=== PATIENT | male | born 1970 ===

== ENCOUNTER 2019-10-21 16:07 | Inpatient (IN) | payer OTHER ==
[2019-10-21] MEDS ORDERED: HEPARIN SODIUM,PORCINE 5,000 UNIT/ML 1 ML VIAL IV PRN ×2 (16:20→23:49)
[2019-10-21] MEDS ORDERED: HEPARIN SODIUM,PORCINE 10,000 UNIT/ML 1 ML VIAL IV ONE (16:20)
--- NOTE | 2019-10-21 16:25 | ED ---
General Adult HPI - General Chief complaint: Chest Pain Stated complaint: Chest Pain Time Seen by Provider: 10/21/19 16:17 Source: patient, EMS Mode of arrival: EMS Limitations: no limitations - History of Present Illness Initial comments: Dictation was produced using eVoter dictation software. please excuse any grammatical, word or spelling errors. This patient was cared for during a federal and state declared state of emergency secondary to Covid 19 Chief Complaint: 48-year-old male with past medical history of hypertension and myocardial infarction presents with chest pain. History of Present Illness: 48-year-old male presents today with 1 day of chest pain. Patient states that he has pressure-like sensation to his anterior chest. Associated with diaphoresis and radiation to the left upper extremity. Patient states he has history of heart attack. Last year he said he had a myocardial infarction. He denies having any stents after having had a cardiac catheterization. Patient denies any other medical problems. Has a numbness and paresthesias to the arms or legs. Patient was arrested today when he was evaluated by [facility] staff and was brought to the emergency department. Patient has any drug use. No cocaine use. He reports being on lifetime smoker. No strong family history of cardiac disease. EMS brought patient to the emergency department. They provided him with nitroglycerin and aspirin. Patient denies any improvement of symptoms with nitroglycerin. The ROS documented in this emergency department record has been reviewed and confirmed by me. Those systems with pertinent positive or negative responses have been documented in the HPI. All other systems are other negative and/or noncontributory. PHYSICAL EXAM: General Impression: Alert and oriented x3, acute distress secondary to pain, d iaphoretic HEENT: Normocephalic atraumatic, extra-ocular movements intact, pupils equal and reactive to light bilaterally, mucous membranes moist. Cardiovascular: Heart regular rate and rhythm Chest: Able to complete full sentences, no retractions, no tachypnea Abdomen: abdomen soft, non-tender, non-distended, no organomegaly Musculoskeletal: Pulses present and equal in all extremities, no peripheral edema Motor: no focal deficits noted Neurological: CN II-XII grossly intact, no focal motor or sensory deficits noted Skin: Intact with no visualized rashes ED course: 48-year-old male with past medical history of myocardial infarction presents with chest pain concerning for acute coronary syndrome. EKG concerning for ST segment elevation MS with ST elevations in the anterior precordial leads. There is also atrial flutter. Code STEMI was paged. Vital signs upon arrival shows heart rate of 102, rest of vital signs within acceptable limits. Discussed patient case and EKG with Dr. Coburn at 4:30 PM. Patient be disposition directly to the catheterization lab for cardiac cath possible coronary artery intervention. Patient be admitted to Dr. Diaz's service. EKG interpretation: Ventricular rate 96, atrial flutter with variable conduction, QRS 170, QTC 399. No old EKG for comparison. Does appear to be ST elevations in precordial leads concerning for anterior MS with concomitant atrial flutter. - Related Data Allergies Allergy/AdvReac Type Severity Reaction Status Date / Time No Known Allergies Allergy Verified 10/21/19 16:09 Review of Systems ROS Statement: Those systems with pertinent positive or pertinent negative responses have been documented in the HPI. ROS Other: All systems not noted in ROS Statement are negative. Past Medical History Past Medical History: Myocardial Infarction (MS) History of Any Multi-Drug Resistant Organisms: None Reported Past Surgical History: No Surgical Hx Reported Smoking Status: Never smoker Past Alcohol Use History: Occasional Past Drug Use History: None Reported General Exam Limitations: no limitations Course Vital Signs 10/21/19 16:09 Temperature 97.6 F Pulse Rate 102 H Respiratory 20 Rate Blood Pressure 111/88 O2 Sat by Pulse 98 Oximetry Medical Decision Making - Lab Data Result diagrams: 10/21/19 16:20 10/21/19 16:20 Lab Results 10/21/19 10/21/19 10/21/19 Range/Units 16:20 16:20 16:20 WBC 7.9 (3.8-10.6) k/uL RBC 5.58 (4.30-5.90) m/uL Hgb 17.7 H (13.0-17.5) gm/dL Hct 53.8 H (39.0-53.0) % MCV 96.4 (80.0-100.0) fL MCH 31.7 (25.0-35.0) pg MCHC 32.9 (31.0-37.0) g/dL RDW 12.6 (11.5-15.5) % Plt Count 223 (150-450) k/uL Neutrophils % 70 % Lymphocytes % 19 % Monocytes % 6 % Eosinophils % 2 % Basophils % 1 % Neutrophils # 5.5 (1.3-7.7) k/uL Lymphocytes # 1.5 (1.0-4.8) k/uL Monocytes # 0.5 (0-1.0) k/uL Eosinophils # 0.1 (0-0.7) k/uL Basophils # 0.0 (0-0.2) k/uL PT 10.5 (9.0-12.0) sec INR 1.0 (<1.2) APTT 22.1 (22.0-30.0) sec D-Dimer 0.28 (<0.60) mg/L FEU Sodium 137 (137-145) mmol/L Potassium 4.5 (3.5-5.1) mmol/L Chloride 105 (98-107) mmol/L Carbon Dioxide 25 (22-30) mmol/L Anion Gap 7 mmol/L BUN 16 (9-20) mg/dL Creatinine 0.87 (0.66-1.25) mg/dL Est GFR (CKD-EPI)AfAm >90 (>60 ml/min/1.73 sqM) Est GFR (CKD-EPI)NonAf >90 (>60 ml/min/1.73 sqM) Glucose 96 (74-99) mg/dL Plasma Lactic Acid Hamilton (0.7-2.0) mmol/L Calcium 10.1 (8.4-10.2) mg/dL Magnesium 2.0 (1.6-2.3) mg/dL Total Bilirubin 0.9 (0.2-1.3) mg/dL AST 57 (17-59) U/L ALT 84 H (4-49) U/L Alkaline Phosphatase 71 (38-126) U/L Creatine Kinase 163 (55-170) U/L Troponin I (0.000-0.034) ng/mL Total Protein 7.9 (6.3-8.2) g/dL Albumin 4.3 (3.5-5.0) g/dL Lipase 34 (23-300) U/L TSH (0.465-4.680) mIU/L 10/21/19 10/21/19 10/21/19 Range/Units 16:20 16:20 16:20 WBC (3.8-10.6) k/uL RBC (4.30-5.90) m/uL Hgb (13.0-17.5) gm/dL Hct (39.0-53.0) % MCV (80.0-100.0) fL MCH (25.0-35.0) pg MCHC (31.0-37.0) g/dL RDW (11.5-15.5) % Plt Count (150-450) k/uL Neutrophils % % Lymphocytes % % Monocytes % % Eosinophils % % Basophils % % Neutrophils # (1.3-7.7) k/uL Lymphocytes # (1.0-4.8) k/uL Monocytes # (0-1.0) k/uL Eosinophils # (0-0.7) k/uL Basophils # (0-0.2) k/uL PT (9.0-12.0) sec INR (<1.2) APTT (22.0-30.0) sec D-Dimer (<0.60) mg/L FEU Sodium (137-145) mmol/L Potassium (3.5-5.1) mmol/L Chloride (98-107) mmol/L Carbon Dioxide (22-30) mmol/L Anion Gap mmol/L BUN (9-20) mg/dL Creatinine (0.66-1.25) mg/dL Est GFR (CKD-EPI)AfAm (>60 ml/min/1.73 sqM) Est GFR (CKD-EPI)NonAf (>60 ml/min/1.73 sqM) Glucose (74-99) mg/dL Plasma Lactic Acid Hamilton 1.6 (0.7-2.0) mmol/L Calcium (8.4-10.2) mg/dL Magnesium (1.6-2.3) mg/dL Total Bilirubin (0.2-1.3) mg/dL AST (17-59) U/L ALT (4-49) U/L Alkaline Phosphatase (38-126) U/L Creatine Kinase (55-170) U/L Troponin I <0.012 (0.000-0.034) ng/mL Total Protein (6.3-8.2) g/dL Albumin (3.5-5.0) g/dL Lipase (23-300) U/L TSH 1.030 (0.465-4.680) mIU/L Disposition Clinical Impression: Chest pain Disposition: ADMITTED IP TO THIS HOSP Condition: Critical Decision Time: 18:19
[2019-10-21] MEDS ORDERED: HEPARIN SOD,PORK IN 0.45% NACL 25,000 UNIT in 0.45% NACL 1 250ML.BAG IV SCH ×2 (16:30→23:45)
--- NOTE | 2019-10-21 16:36 | XR ---
EXAMINATION TYPE: XR chest 1V portable DATE OF EXAM: 10/21/2019 COMPARISON: NONE HISTORY: Chest pain TECHNIQUE: Single frontal view of the chest is obtained. FINDINGS: There is no focal air space opacity, pleural effusion, or pneumothorax seen. The cardiac silhouette size is borderline increased, size may be accentuated by technique, rotation. The osseou s structures are intact. There are overlying cardiac leads. IMPRESSION: Rotated exam. Cardiac size may be borderline.
[2019-10-21 16:38] LABS: Basophils % (A) 1 %; Eosinophils # (A) 0.1 k/uL (0-0.7); Eosinophils % (A) 2 %; HCT 53.8 % (39.0-53.0); HGB 17.7 gm/dL (13.0-17.5); Lymphocytes # (A) 1.5 k/uL (1.0-4.8); Lymphocytes % (A) 19 %; MCH 31.7 pg (25.0-35.0); MCHC 32.9 g/dL (31.0-37.0); MCV 96.4 fL (80.0-100.0); Mean Platelet Volume 7.7; Monocytes # (A) 0.5 k/uL (0-1.0); Monocytes % (A) 6 %; Neutrophils # (A) 5.5 k/uL (1.3-7.7); Neutrophils % (A) 70 %; Platelet Count 223 k/uL (150-450); RBC 5.58 m/uL (4.30-5.90); RDW 12.6 % (11.5-15.5); WBC 7.9 k/uL (3.8-10.6)
[2019-10-21] MEDS ORDERED: NALOXONE 0.4 MG/ML 1 ML VIAL IV PRN (16:38)
[2019-10-21] MEDS ORDERED: SODIUM CHLORIDE 0.9% 1,000 ML IV SCH ×2 (16:45→17:30)
[2019-10-21 16:49] LABS: ALT 84 U/L (4-49); AST 57 U/L (17-59); African American GFR (CKD) >90 (>60 ml/min/1.73 sqM); Albumin 4.3 g/dL (3.5-5.0); Alkaline Phosphatase 71 U/L (38-126); Anion Gap 7 mmol/L; Blood Urea Nitrogen 16 mg/dL (9-20); Calcium 10.1 mg/dL (8.4-10.2); Carbon Dioxide 25 mmol/L (22-30); Chloride 105 mmol/L (98-107); Creatine Kinase 163 U/L (55-170); Glucose 96 mg/dL (74-99); Non-African American GFR(CKD) >90 (>60 ml/min/1.73 sqM); Potassium 4.5 mmol/L (3.5-5.1); Sodium 137 mmol/L (137-145); Total Bilirubin 0.9 mg/dL (0.2-1.3); Total Protein 7.9 g/dL (6.3-8.2)
[2019-10-21 16:51] LABS: D-Dimer 0.28 mg/L FEU (<0.60); Partial Thromboplastin Time 22.1 sec (22.0-30.0); Prothrombin Time 10.5 sec (9.0-12.0)
[2019-10-21] MEDS ORDERED: LIDOCAINE 1% INJ 10MG/ML (20 ML MDV) SQ ONE (17:11)
[2019-10-21] MEDS ORDERED: MIDAZOLAM 2 MG/2 ML VIAL IVP ONE (17:11)
[2019-10-21] MEDS ORDERED: IV FLUID CONTINUATION 900 ML IV ONE (17:11)
[2019-10-21] MEDS ORDERED: fentaNYL (PF) 50 MCG/ML 2 ML AMP ONE (17:14)
[2019-10-21] MEDS ORDERED: fentaNYL (PF) 50 MCG/ML 2 ML AMP IVP ONE (17:15)
[2019-10-21] MEDS: VERAPAMIL SYRINGE (5 MG/10 ML) INTRAARTER ONE ×2 (17:16→17:21)
[2019-10-21] MEDS ORDERED: IOPAMIDOL-370 125ML BTL INJ ONE (17:21)
[2019-10-21] MEDS ORDERED: RX INFO: IV CONTRAST WAS GIVEN 1 EACH MISC MISCELLANE PRN (17:25)
[2019-10-21] MEDS ORDERED: DILTIAZEM 125 MG in SODIUM CHLORIDE 0.9% 100 ML IV SCH (17:30)
--- NOTE | 2019-10-21 18:27 | P.CRDCN ---
History of Present Illness Consult date: 10/21/19 Chief complaint: Chest pain History of present illness: This is a very pleasant 48-year-old gentleman with no significant past medical history who presented to the emergency room complaining of chest discomfort. I was called from the emergency room to activate the catheter lab to perform a STEMI on the patient. Because of that the patient underwent an emergent heart catheterization from right radial approach and that revealed normal coronaries. Further evaluation of the EKG revealed what seems to be atrial flutter with 2:1 block and right bundle branch block. Further questioning of the patient revealed that the patient was seen recently by a learning administrator at [facility] he was told that he does have "atypical problem". No prior history of diabetes, hypertension, dyslipidemia. No history of smoking. No significant family history of coronary artery disease. The heart catheterization was performed without any complication. I did review his blood work. That revealed normal d-dimer. The patient is going to be admitted to the third floor where he would be started on Cardizem drip and also he will be started on heparin drip once we achieve hemostasis from the right radial artery. Also I'm going to obtain an echocardiogram. We'll continue following up with him. Past Medical History Past Medical History: Myocardial Infarction (ND) History of Any Multi-Drug Resistant Organisms: None Reported Past Surgical History: No Surgical Hx Reported Smoking Status: Never smoker Past Alcohol Use History: Occasional Past Drug Use History: None Reported Medications and Allergies Allergies Allergy/AdvReac Type Severity Reaction Status Date / Time No Known Allergies Allergy Verified 10/21/19 16:09 Physical Exam Vitals: Vital Signs Temp Pulse Resp BP Pulse Ox 10/21/19 16:09 97.6 F 102 H 20 111/88 98 Intake and Output 10/21/19 10/21/19 10/21/19 06:59 14:59 22:59 Intake Total 150 Balance 150 Intake: IV 150 Other: Weight 90.718 kg - Constitutional General appearance: no acute distress - Respiratory Respiratory: bilateral: diminished - Cardiovascular Rhythm: regular Results 10/21/19 16:20 10/21/19 16:20 Cardiac Enzymes 10/21/19 10/21/19 Range/Units 16:20 16:20 AST 57 (17-59) U/L Troponin I <0.012 (0.000-0.034) ng/mL Coagulation 10/21/19 Range/Units 16:20 PT 10.5 (9.0-12.0) sec APTT 22.1 (22.0-30.0) sec CBC 10/21/19 Range/Units 16:20 WBC 7.9 (3.8-10.6) k/uL RBC 5.58 (4.30-5.90) m/uL Hgb 17.7 H (13.0-17.5) gm/dL Hct 53.8 H (39.0-53.0) % Plt Count 223 (150-450) k/uL Comprehensive Metabolic Panel 10/21/19 Range/Units 16:20 Sodium 137 (137-145) mmol/L Potassium 4.5 (3.5-5.1) mmol/L Chloride 105 (98-107) mmol/L Carbon Dioxide 25 (22-30) mmol/L BUN 16 (9-20) mg/dL Creatinine 0.87 (0.66-1.25) mg/dL Glucose 96 (74-99) mg/dL Calcium 10.1 (8.4-10.2) mg/dL AST 57 (17-59) U/L ALT 84 H (4-49) U/L Alkaline Phosphatase 71 (38-126) U/L Total Protein 7.9 (6.3-8.2) g/dL Albumin 4.3 (3.5-5.0) g/dL Current Medications Generic Name Dose Route Start Last Admin Trade Name Freq PRN Reason Stop Dose Admin Sodium Chloride 1,000 mls @ 75 mls/hr 10/21/19 17:30 Saline 0.9% IV 10/21/19 22:31 .[id number] BILL Diltiazem HCl 125 mg/ Sodium 125 mls @ 5 mls/hr 10/21/19 17:30 Chloride IV .Q24H BILL 5 MG/HR Metoprolol Tartrate 25 mg 10/21/19 21:00 Lopressor PO BID BILL Miscellaneous Information 1 each 10/21/19 17:25 Rx Info: Iv Contrast Was Given MISCELLANE 10/23/19 17:26 DAILY PRN Per Protocol Naloxone HCl 0.2 mg 10/21/19 16:38 Narcan IV Q2M PRN Opioid Reversal Oxymetazoline HCl 2 spray 10/21/19 18:09 Afrin 0.05% Nasal [place] NASAL BID BILL Intake and Output 10/21/19 10/21/19 10/21/19 06:59 14:59 22:59 Intake Total 150 Balance 150 Intake: IV 150 Other: Weight 90.718 kg Patient Weight 10/22/19 06:59 Weight 90.718 kg 10/21/19 16:20 10/21/19 16:20 Assessment and Plan Assessment: Assessment Atrial flutter with 2:1 block Plan Start the patient on Cardizem drip Start the patient on metoprolol by mouth Start the patient on heparin drip once we have hemostasis An echocardiogram was Doppler TSH Follow-up with the patient Thank you for allowing us participate in his care will continue following up with the patient
[2019-10-21] MEDS: OXYMETAZOLINE 0.05% NASL SPRAY 1 SPRAY BOTTLE NASAL SCH (19:22)
[2019-10-21] MEDS ORDERED: HYDROmorphone 0.5 MG/0.5 ML SYRINGE IVP STA (19:48)
[2019-10-21] MEDS: METOPROLOL TARTRATE 25 MG TAB PO SCH (21:07)
--- NOTE | 2019-10-21 22:00 | CC ---
CARDIAC CATHETERIZATION REPORT DATE OF SERVICE: 10/21/2019 PERFORMING PHYSICIAN: Dave Irwin M.D. PROCEDURES PERFORMED: 1. Selective right and left coronary angiogram. 2. Left heart catheterization. INDICATION: This is a 48-year-old gentleman who presented to the emergency room with chest discomfort and EKG finding concerning for acute ST-elevation myocardial infarction. Because of that, a heart catheterization was advised. APPROACH: Right radial artery. COMPLICATIONS: None. LEVEL OF SEDATION: Moderate, with sedation length of 12 minutes. PROCEDURE DESCRIPTION: After obtaining informed consent, the patient was brought to the cardiac medical laboratory technologist. The right radial artery was cannulated using micropuncture technique. The micropuncture wire passed easily. Then I placed a 6-Eritrean sheath at the right radial artery. After that I did selective right and left coronary angiogram using JR4 and JL3.5 catheters. Left heart catheterization was performed using a 6-Eritrean pigtail catheter. The procedure was completed without any complication. SELECTIVE CORONARY ANGIOGRAM.: 1. The right coronary artery is a large-caliber vessel. It is a dominant vessel and appeared to be angiographically normal. It distally bifurcates into PDA and PLV branches. Both appeared to be angiographically normal. 2. The left main is angiographically normal. It bifurcates into LCX, ramus intermedius and left anterior descending artery. 3. The left circumflex is a large-caliber vessel. It is a nondominant vessel. The left circumflex is angiographically normal. In the mid portion gives rise to an OM1 which bifurcates into 2 separate branches. Both appeared to be angiographically normal. The circumflex continues after that as a medium-caliber vessel in the AV groove. 4. The ramus intermedius is a small-caliber vessel to medium-caliber vessel and appeared to be angiographically normal. 5. The LAD is a large-caliber vessel. It is angiographically normal. It gives rise to a diagonal branch which appeared to be angiographically normal. 6. HEMODYNAMICS: The LVEDP was 8-10 mmHg without significant gradient across the aortic valve. CONCLUSION: 1. Normal coronary angiogram. 2. Normal left ventricular end-diastolic pressure. MMODL / IJN: [id number] /
[2019-10-21] MEDS ORDERED: HEPARIN SODIUM,PORCINE 5,000 UNIT/ML 1 ML VIAL IV ONE (23:49)
[2019-10-22 01:23] LABS: Basophils % (A) 1 %; Eosinophils # (A) 0.4 k/uL (0-0.7); Eosinophils % (A) 5 %; HCT 50.7 % (39.0-53.0); Lymphocytes # (A) 1.9 k/uL (1.0-4.8); Lymphocytes % (A) 24 %; MCHC 33.6 g/dL (31.0-37.0); MCV 98.2 fL (80.0-100.0); Mean Platelet Volume 8.1; Monocytes # (A) 0.5 k/uL (0-1.0); Monocytes % (A) 6 %; Neutrophils # (A) 5.2 k/uL (1.3-7.7); Neutrophils % (A) 64 %; Platelet Count 189 k/uL (150-450); RBC 5.17 m/uL (4.30-5.90); RDW 12.8 % (11.5-15.5); WBC 8.2 k/uL (3.8-10.6)
[2019-10-22 01:31] LABS: Partial Thromboplastin Time 22.2 sec (22.0-30.0); Prothrombin Time 10.8 sec (9.0-12.0)
[2019-10-22 07:32] LABS: Basophils % (A) 1 %; Eosinophils # (A) 0.4 k/uL (0-0.7); Eosinophils % (A) 5 %; HCT 51.8 % (39.0-53.0); HGB 17.4 gm/dL (13.0-17.5); Lymphocytes # (A) 1.6 k/uL (1.0-4.8); Lymphocytes % (A) 21 %; MCH 32.9 pg (25.0-35.0); MCHC 33.6 g/dL (31.0-37.0); MCV 97.9 fL (80.0-100.0); Monocytes # (A) 0.5 k/uL (0-1.0); Monocytes % (A) 6 %; Neutrophils # (A) 5.1 k/uL (1.3-7.7); Neutrophils % (A) 65 %; Platelet Count 194 k/uL (150-450); RBC 5.29 m/uL (4.30-5.90); RDW 12.6 % (11.5-15.5); WBC 7.8 k/uL (3.8-10.6)
[2019-10-22] MEDS ORDERED: HEPARIN SODIUM,PORCINE 5,000 UNIT/ML 1 ML VIAL IV STA (08:35)
[2019-10-22] MEDS: METOPROLOL TARTRATE 25 MG TAB PO SCH (08:46)
[2019-10-22] MEDS ORDERED: METOPROLOL TARTRATE 25 MG TAB PO SCH (09:00)
[2019-10-22] MEDS: APIXABAN 5 MG TAB PO SCH ×2 (11:00→20:13)
[2019-10-22] MEDS: OXYMETAZOLINE 0.05% NASL SPRAY 1 SPRAY BOTTLE NASAL SCH ×2 (11:01→20:14)
[2019-10-22] MEDS ORDERED: PROPAFENONE 150 MG TAB PO STA (12:12)
--- NOTE | 2019-10-22 13:14 | ECHOF ---
Referral Reason:A. FIB MEASUREMENTS -------- HEIGHT: 182.9 cm WEIGHT: 94.8 kg BP: 122/76 RVIDd: 3.1 cm (< 3.3) IVSd: 1.6 cm (0.6 - 1.1) LVIDd: 3.6 cm (3.9 - 5.3) LVPWd: 1.7 cm (0.6 - 1.1) IVSs: 2.1 cm LVIDs: 2.5 cm LVPWs: 1.9 cm LAESV Index (A-L): 26.74 ml/m Ao Diam: 3.0 cm (2.0 - 3.7) AV Cusp: 2.2 cm (1.5 - 2.6) LA Diam: 4.3 cm (2.7 - 3.8) MV EXCURSION: 20.130 mm (> 18.000) MV EF SLOPE: 95 mm/s (70 - 150) EPSS: 0.3 cm RAP: 5.00 mmHg RVSP: 11.42 mmHg FINDINGS -------- Atrial fibrillation. This was a technically difficult study with suboptimal views. The left ventricular size is normal. There is severe concentric left ventricular hypertrophy. Ove rall left ventricular systolic function is low-normal with, an EF between 50 - 55 %. Left ventricul ar fillimg pressure cannot be estimated due to Atrial fibrillation. The right ventricle is normal in size. The left atrial size is normal. The right atrial size is normal. Lumason used Interatrial and interventricular septum intact. Aortic valve is trileaflet and is mildly thickened. The mitral valve is normal. The mitral valve leaflets are mildly thickened. There is trace mitral regurgitation. The tricuspid valve appears structurally normal. Trace tricuspid regurgitation present. Right wilbert tricular systolic pressure is normal at < 35 mmHg. There is no pulmonic regurgitation present. The aortic root size is normal. IVC Not well visulized. There is no pericardial effusion. CONCLUSIONS -------- 1. Atrial fibrillation. 2. This was a technically difficult study with suboptimal views. 3. The left ventricular size is normal. 4. There is severe concentric left ventricular hypertrophy. 5. Overall left ventricular systolic function is low-normal with, an EF between 50 - 55 %. 6. Left ventricular fillimg pressure cannot be estimated due to Atrial fibrillation. 7. The right ventricle is normal in size. 8. The left atrial size is normal. 9. The right atrial size is normal. 10. Lumason used 11. Interatrial and interventricular septum intact. 12. Aortic valve is trileaflet and is mildly thickened. 13. The mitral valve is normal. 14. The mitral valve leaflets are mildly thickened. 15. There is trace mitral regurgitation. 16. The tricuspid valve appears structurally normal. 17. Trace tricuspid regurgitation present. 18. Right ventricular systolic pressure is normal at < 35 mmHg. 19. There is no pulmonic regurgitation present. 20. The aortic root size is normal. 21. IVC Not well visulized. 22. There is no pericardial effusion. TRANSMISSION SUPERVISOR: Amna Murillo RDCS
--- NOTE | 2019-10-22 13:21 | P.PN ---
Subjective Progress Note Date: 10/22/19 This is a very pleasant 48-year-old gentleman with no significant past medical history who presented to the emergency room complaining of chest discomfort. I was called from the emergency room to activate the catheter lab to perform a STEMI on the patient. Because of that the patient underwent an emergent heart catheterization from right radial approach and that revealed normal coronaries. Further evaluation of the EKG revealed what seems to be atrial flutter with 2:1 block and right bundle branch block. Further questioning of the patient revealed that the patient was seen recently by a oil operator at [facility] he was told that he does have "atypical problem". No prior history of diabetes, hypertension, dyslipidemia. No history of smoking. No significant family history of coronary artery disease. The heart catheterization was performed without any complication. I did review his blood work. That revealed normal d-dimer. The patient is going to be admitted to the third floor where he would be started on Cardizem drip and also he will be started on heparin drip once we achieve hemostasis from the right radial artery. Also I'm going to obtain an echocardiogram. We'll continue following up with him. 10/22/2019 Patient underwent a cardiac catheterization yesterday which did not reveal any obstructive coronary artery disease. He continues to be in an atrial flutter this morning with a heart rate around 9200. He is on a Cardizem drip which we will discontinue. We will increase his dose of beta giselle. Patient also continues to be on IV heparin, we will change him over to Eliquis. His LV function is normal per echo reviewed by Dr. Coburn. We will given a one-time dose of Rythmol to see if he converts to normal sinus rhythm. We will continue to observe him for 24 hours. Objective - Vital Signs Vital signs: Vital Signs Temp 98.6 F 10/22/19 08:00 Pulse 98 10/22/19 08:00 Resp 16 10/22/19 08:00 BP 136/82 10/22/19 08:00 Pulse Ox 98 10/22/19 08:00 Intake & Output 10/21/19 10/22/19 10/22/19 18:59 06:59 18:59 Intake Total 150 69.313 Balance 150 69.313 Weight 90.718 kg 95 kg Intake: IV 150 Intake, IV Titration 69.313 Amount Heparin Sod,Pork in 0.45% 69.313 NaCl 25,000 unit In 0.45 % NaCl 1 250ml.bag @ 11. 02 UNITS/KG/HR 9.997 mls/ hr IV .Q24H [facility] Rx#: [id number] - Exam PHYSICAL EXAMINATION: GENERAL: 48-year-old gentleman in no acute distress at the time of my examination HEENT: Head is atraumatic, normocephalic. Pupils equal, round. Sclera anicteric. Conjunctiva are clear. Mucous membranes of the mouth are moist. Neck is supple. There is no elevated jugular venous pressure. No carotid b ruit is heard. HEART EXAMINATION: Heart S1, S2 irregularly irregular . CHEST EXAMINATION: Lungs are clear to auscultation and precussion. No chest wall tenderness is noted on palpation or with deep breathing. ABDOMEN: Soft, nontender. Bowel sounds are heard. No organomegaly noted. EXTREMITIES: 2+ peripheral pulses with no evidence of peripheral edema and no calf tenderness noted. Right radial site clean and dry, good distal pulse NEUROLOGIC patient is awake, alert and oriented 3. . - Labs CBC & Chem 7: 10/22/19 07:17 10/21/19 16:20 Labs: Abnormal Lab Results - Last 24 Hours (Table) 10/21/19 10/21/19 10/22/19 Range/Units 16:20 16:20 07:17 Hgb 17.7 H (13.0-17.5) gm/dL Hct 53.8 H (39.0-53.0) % APTT 41.5 H (22.0-30.0) sec ALT 84 H (4-49) U/L Assessment and Plan Plan: Assessment and plan #1 chest discomfort, EKG suggestive of possible STEMI on arrival, patient was taken to the cardiac catheterization lab, not found to have any obstructive coronary artery disease #2 typical atrial flutter with 2 to one block Plan Echocardiogram with Doppler study was reviewed by Dr. Coburn, patient has a normal LV function. We will given 600 mg of Rythmol now, discontinue the IV heparin and start Eliquis, discontinue IV Cardizem and increase the dose of beta giselle. Continue to monitor the patient for 24 hours. DNP note has been reviewed, I agree with a documented findings and plan of care. Patient was seen and examined.
[2019-10-22] MEDS: ACETAMINOPHEN TAB 325 MG TAB PO PRN (16:46)
[2019-10-22] MEDS ORDERED: ATROPINE SULFATE 0.1 MG/ML 10ML SYRINGE IV STA (19:37)
[2019-10-22] MEDS: METOPROLOL TARTRATE 50 MG TAB PO SCH (20:03)
--- NOTE | 2019-10-22 20:08 | P.HPIM ---
History of Present Illness H&P Date: 10/22/19 Chief Complaint: Chest tightness History of presenting complaint: This is a pleasant 48-year-old patient who follows with Dr. Rosa Wang. Patient also in good health normally. For 2 weeks patient has been feeling somewhat off. Described himself as feeling a little bit short of breath. Also describes having some chest tightness. Sometimes going down the left arm. Also social dizziness lightheadedness some perspiration. Presented to the ER. Patient does state that he had a prior [place] and was treated at [facility]. He had no coronary intervention. Does not take any medications. In the ER patient is felt to have a ST elevation microinfarction and patient was taken to the cardiac cath last emergency. Showed normal coronaries. EKG had shown atrial flutter with 2:1 block. Patient yesterday was arrested from his workplace and taken to the detention for which is presented. Patient has a officer with him in the room. Denies any leg swelling. No fever no chills Review of systems: GEN.: Tired EYES: None HEENT: None NECK: None RESPIRATORY: As above CARDIOVASCULAR: As above GASTROINTESTINAL: None GENITOURINARY: None MUSCULOSKELETAL: None LYMPHATICS: None HEMATOLOGICAL: None PSYCHIATRY: None NEUROLOGICAL: None Past medical history to include: Questionable myocardial infarction Social history: No smoking. Alcohol occasionally. Denies use of recreational drugs. Patient has a auto repair shop. His . Currently arraainged-in the presence of police custody Family history: Lung cancer Physical examination: VITAL SIGNS: 98.6, 98, 16, 136/82, 98% on room air GENERAL: BMI 30.1, laying in bed, comfortable. EYES: Pupils equal. Conjunctiva normal. HEENT: External appearance of nose and ears normal, oral cavity grossly normal. NECK: JVD not raised; masses not palpable. HEART: First and second heart sounds are normal; no edema. LUNGS: Respiratory rate normal; clear to auscultation. ABDOMEN: Soft, nontender, liver spleen not palpable, no masses palpable. PSYCH: Alert and oriented x3; mood and affect normal. NEUROLOGICAL: Cranial nerves grossly intact; no facial asymmetry, power and sensation grossly intact. LYMPHATICS: No lymph nodes palpable in the axilla and neck INVESTIGATIONS, reviewed in the clinical context: White count 7.9 hemoglobin 7.7 platelets 223 potassium 4.5 creatinine 0.87 Troponin I less than 0.012 TSH 1.030 EKG tracing personally reviewed by me-right bundle branch block pattern with 2:[address] elevation Chest x-ray film personally reviewed by me-portable some right diaphragm elevation 2-D echocardiogram-severe concentric LVH, EF of 50-55% Assessment: -New onset atrial flutter with 2:1 block, symptomatic, POA -Cardiac catheterization revealing normal coronaries -Obesity BMI 30.1 -D-dimer 0.28 make making be extremely unlikely. Patient has no swelling of the lower extremity. Other risk factors. -Essential hypertension -Hypertensive heart disease Plan: Patient was started on Lopressor by cardiology. Jackelin Akersmojoselyn. See how he does. Will follow with cardiology.[id number] score is 1. Anticoagulation as per cardio G. Care was discussed with the patient. Questions were answered. Past Medical History Past Medical History: Myocardial Infarction ([place]) Last Myocardial Infarction Date:: unknown History of Any Multi-Drug Resistant Organisms: None Reported Past Surgical History: No Surgical Hx Reported Past Anesthesia/Blood Transfusion Reactions: No Reported Reaction Smoking Status: Never smoker Past Alcohol Use History: Occasional Past Drug Use History: None Reported - Past Family History Father Family Medical History: Cancer Additional Family Medical History / Comment(s): Lung CA Mother History Unknown: Yes Medications and Allergies Home Medications Medication Instructions Recorded Confirmed Type Aspirin 325 mg PO ONCE 10/21/19 10/21/19 History Metoprolol (Unknown Dose) 1 tab PO DAILY 10/21/19 10/21/19 History Nitroglycerin Sl Tabs [Nitrostat] 0.4 mg SUBLINGUAL Q5M PRN 10/21/19 10/21/19 History Allergies Allergy/AdvReac Type Severity Reaction Status Date / Time No Known Allergies Allergy Verified 10/21/19 22:43 Physical Exam Vitals: Vital Signs Temp Pulse Pulse Resp BP BP Pulse Ox 10/22/19 08:00 98.6 F 98 16 136/82 98 10/22/19 03:10 98.1 F 65 16 122/76 100 10/21/19 23:35 98.1 F 76 16 102/76 98 10/21/19 19:15 18 10/21/19 19:11 97.8 F 101 H 18 164/89 98 10/21/19 19:00 108 H 20 138/94 98 10/21/19 18:30 108 H 18 163/63 10/21/19 18:15 100 20 119/97 10/21/19 18:00 98.1 F 104 H 20 135/91 98 10/21/19 16:09 97.6 F 102 H 20 111/88 98 Intake and Output 10/21/19 10/22/19 10/22/19 22:59 06:59 14:59 Intake Total 150 69.313 Balance 150 69.313 Intake: IV 150 Intake, IV Titration 69.313 Amount Heparin Sod,Pork in 0.45% 69.313 NaCl 25,000 unit In 0.45 % NaCl 1 250ml.bag @ 11. 02 UNITS/KG/HR 9.997 mls/ hr IV .Q24H [facility] Rx#: [id number] Other: Weight 90.718 kg 95 kg Results CBC & Chem 7: 10/22/19 07:17 10/21/19 16:20 Labs: Abnormal Lab Results - Last 24 Hours (Table) 10/21/19 10/21/19 10/22/19 Range/Units 16:20 16:20 07:17 Hgb 17.7 H (13.0-17.5) gm/dL Hct 53.8 H (39.0-53.0) % APTT 41.5 H (22.0-30.0) sec ALT 84 H (4-49) U/L Thrombosis Risk Factor Assmnt - Choose All That Apply Any of the Below Risk Factors Present?: Yes Each Factor Represents 1 point: Age 41-60 years Other Risk Factors: No Other congenital or acquired thrombophilia - If yes, enter type in comment: No Thrombosis Risk Factor Assessment Total Risk Factor Score: 1 Thrombosis Risk Factor Assessment Level: Low Risk
[2019-10-22 20:40] LABS: ALT 81 U/L (4-49); AST 51 U/L (17-59); African American GFR (CKD) >90 (>60 ml/min/1.73 sqM); Albumin 4.1 g/dL (3.5-5.0); Alkaline Phosphatase 58 U/L (38-126); Anion Gap 8 mmol/L; Blood Urea Nitrogen 21 mg/dL (9-20); Calcium 9.5 mg/dL (8.4-10.2); Carbon Dioxide 24 mmol/L (22-30); Chloride 104 mmol/L (98-107); Glucose 117 mg/dL (74-99); Magnesium 2.3 mg/dL (1.6-2.3); Non-African American GFR(CKD) 88 (>60 ml/min/1.73 sqM); Potassium 4.5 mmol/L (3.5-5.1); Sodium 136 mmol/L (137-145); Total Bilirubin 0.7 mg/dL (0.2-1.3); Total Protein 7.4 g/dL (6.3-8.2)
[2019-10-23 06:45] LABS: Basophils # (A) 0.1 k/uL (0-0.2); Basophils % (A) 1 %; Eosinophils # (A) 0.5 k/uL (0-0.7); Eosinophils % (A) 5 %; HCT 54.3 % (39.0-53.0); HGB 17.7 gm/dL (13.0-17.5); Lymphocytes % (A) 23 %; MCH 31.9 pg (25.0-35.0); MCHC 32.6 g/dL (31.0-37.0); MCV 97.9 fL (80.0-100.0); Mean Platelet Volume 8.1; Monocytes # (A) 0.6 k/uL (0-1.0); Monocytes % (A) 7 %; Neutrophils # (A) 5.3 k/uL (1.3-7.7); Neutrophils % (A) 62 %; Platelet Count 198 k/uL (150-450); RBC 5.55 m/uL (4.30-5.90); RDW 12.6 % (11.5-15.5); WBC 8.5 k/uL (3.8-10.6)
[2019-10-23] MEDS: APIXABAN 5 MG TAB PO SCH ×2 (09:02→20:22)
[2019-10-23] MEDS: OXYMETAZOLINE 0.05% NASL SPRAY 1 SPRAY BOTTLE NASAL SCH ×2 (09:05→20:23)
[2019-10-23] MEDS ORDERED: AMIODARONE 360 MG in DEXTROSE 5% IN WATER 200 ML IV ONE ×2 (10:20)
[2019-10-23] MEDS ORDERED: DEXTROSE 5% IN WATER 100 ML with AMIODARONE 150 MG IV ONE (10:20)
--- NOTE | 2019-10-23 15:22 | CT ---
EXAMINATION TYPE: CT angio chest DATE OF EXAM: 10/23/2019 COMPARISON: None HISTORY: cough, SOB CT DLP: 581.8 mGycm Automated exposure control for dose reduction was used. CONTRAST: Performed with IV Contrast, patient injected with 80 mL of Isovue 370. There are 3-D post processed images. The lungs are clear of infiltrate. There is no pleural effusion. Heart is enlarged. There is no peric ardial effusion. There is no mediastinal adenopathy. Thoracic aorta is intact. There is no aneurysm o r dissection. There are no hilar masses. Upper abdominal soft tissues are intact. There is some reflux of contrast into the inferior vena cava. There is normal contrast opacification of the pulmonary arteries. I see no filling defect. Thoracic spine is intact. There is no compression fracture. Ribs appear intact. IMPRESSION: No evidence of pulmonary embolism. Contrast reflux into the inferior vena cava suggestive of some deg ree of heart failure.
[2019-10-23] MEDS: METOPROLOL TARTRATE 50 MG TAB PO SCH (15:59)
[2019-10-23] MEDS: AMIODARONE 300 MG in DEXTROSE 5% IN WATER 250 ML IV SCH ×2 (17:08)
--- NOTE | 2019-10-23 20:27 | P.PN ---
Progress Note - Text Progress Note Date: 10/23/19 Chief Complaint: Chest tightness History of presenting complaint: This is a pleasant 48-year-old patient who follows with Dr. Rosa Wang. Patient also in good health normally. For 2 weeks patient has been feeling somewhat off. Described himself as feeling a little bit short of breath. Also describes having some chest tightness. Sometimes going down the left arm. Also social dizziness lightheadedness some perspiration. Presented to the ER. Patient does state that he had a prior [place] and was treated at [facility]. He had no coronary intervention. Does not take any medications. In the ER patient is felt to have a ST elevation myocardial infarction and patient was taken to the cardiac cath last emergency. Showed normal coronaries. EKG had shown atrial flutter with 2:1 block. Patient yesterday was arrested from his workplace and taken to the [facility] for which is presented. Patient has a officer with him in the room. Denies any leg swelling. No fever no chills Admitted with-atrial flutter with rate uncontrolled. Cardiac catheter showing revealed normal coronaries. No acute [place]. Given Rythmol. Today-started on IV amiodarone by cardiology. Patient had some more chest pain. CT chest ordered to rule out PE. The felt unlikely. Review of systems: Was done for constitutional, cardiovascular, GI, pulmonary. relevant finding as above Active Medications Acetaminophen (Tylenol Tab) 650 mg PO Q6HR PRN PRN Reason: Fever and/ or Pain Last Admin: 10/22/19 16:46 Dose: 650 mg Documented by: Apixaban (Eliquis) 5 mg PO BID [facility] Last Admin: 10/23/19 20:22 Dose: 5 mg Documented by: Amiodarone HCl 300 mg/ (Dextrose/Water) 250 mls 25 mls/hr IV .Q10H [facility]; Protocol Stop: 10/24/19 10:19 Last Admin: 10/23/19 17:08 Dose: 0.5 mg/min, 25 mls/hr Documented by: Naloxone HCl (Narcan) 0.2 mg IV Q2M PRN PRN Reason: Opioid Reversal Oxymetazoline HCl (Afrin 0.05% Nasal [place]) 2 spray NASAL BID [facility] Last Admin: 10/23/19 20:23 Dose: Not Given Documented by: Physical examination: VITAL SIGNS: 98.2, 90, 18, 132/88, 100% on room air GENERAL: BMI 30.1, laying in bed, comfortable. EYES: Pupils equal. Conjunctiva normal. HEENT: External appearance of nose and ears normal, oral cavity grossly normal. NECK: JVD not raised; masses not palpable. HEART: First and second heart sounds are normal; no edema. LUNGS: Respiratory rate normal; clear to auscultation. ABDOMEN: Soft, nontender, liver spleen not palpable, no masses palpable. PSYCH: Alert and oriented x3; mood and affect normal. INVESTIGATIONS, reviewed in the clinical context: White count 8.5 hemoglobin 7.7 Chest CTA-negative for PE Previous testing White count 7.9 hemoglobin 7.7 platelets 223 potassium 4.5 creatinine 0.87 Troponin I less than 0.012 TSH 1.030 EKG tracing personally reviewed by me-right bundle branch block pattern with 2:[address] elevation Chest x-ray film personally reviewed by me-portable some right diaphragm elevation 2-D echocardiogram-severe concentric LVH, EF of 50-55% Assessment: -New onset atrial flutter with 2:1 block, symptomatic, POA. Given Rythmol. Still remained in atrial flutter fibrillation. Today started on Put on IV amiodarone. -Cardiac catheterization revealing normal coronaries -Obesity BMI 30.1 -Essential hypertension -Hypertensive heart disease -Pulmonary embolism ruled out Plan: Discussed with Dr. Coburn from cardiogenic. Possible anticoagulation for about 6 weeks. In the meantime patient is on IV amiodarone. Discussed with the patient. Heart rate is hoping around 100
[2019-10-23] MEDS: ACETAMINOPHEN TAB 325 MG TAB PO PRN (21:50)
[2019-10-24] MEDS: AMIODARONE 300 MG in DEXTROSE 5% IN WATER 250 ML IV SCH ×2 (01:54)
[2019-10-24 04:59] VITALS: RESP 16
[2019-10-24 06:15] LABS: Basophils % (A) 1 %; Eosinophils # (A) 0.4 k/uL (0-0.7); Eosinophils % (A) 6 %; HCT 50.5 % (39.0-53.0); HGB 17.2 gm/dL (13.0-17.5); Lymphocytes # (A) 1.9 k/uL (1.0-4.8); Lymphocytes % (A) 26 %; MCH 33.6 pg (25.0-35.0); MCV 98.9 fL (80.0-100.0); Monocytes # (A) 0.5 k/uL (0-1.0); Monocytes % (A) 7 %; Neutrophils # (A) 4.4 k/uL (1.3-7.7); Neutrophils % (A) 59 %; Platelet Count 208 k/uL (150-450); RDW 12.7 % (11.5-15.5); WBC 7.5 k/uL (3.8-10.6)
[2019-10-24] MEDS: APIXABAN 5 MG TAB PO SCH (08:38)
[2019-10-24] MEDS: OXYMETAZOLINE 0.05% NASL SPRAY 1 SPRAY BOTTLE NASAL SCH (08:39)
[2019-10-24] MEDS ORDERED: AMIODARONE 200 MG TAB PO SCH ×2 (09:56→16:00)
[2019-10-24 10:21] LABS: Urine Alcohol Negative (Negative); Urine Barbiturate Negative (Negative); Urine Cocaine Negative (Negative); Urine Methadone Negative (Negative); Urine Opiates Negative (Negative); Urine Phencyclidine Negative (Negative)
[2019-10-24 11:42] VITALS: BP 131/91; TEMP 98.1
[2019-10-24 11:44] VITALS: PULSE 81
--- NOTE | 2019-10-24 12:16 | P.PN ---
Subjective Progress Note Date: 10/24/19 This is a very pleasant 48-year-old gentleman with no significant past medical history who presented to the emergency room complaining of chest discomfort. I was called from the emergency room to activate the catheter lab to perform a STEMI on the patient. Because of that the patient underwent an emergent heart catheterization from right radial approach and that revealed normal coronaries. Further evaluation of the EKG revealed what seems to be atrial flutter with 2:1 block and right bundle branch block. Further questioning of the patient revealed that the patient was seen recently by a museum librarian at [facility] he was told that he does have "atypical problem". No prior history of diabetes, hypertension, dyslipidemia. No history of smoking. No significant family history of coronary artery disease. The heart catheterization was performed without any complication. I did review his blood work. That revealed normal d-dimer. The patient is going to be admitted to the third floor where he would be started on Cardizem drip and also he will be started on heparin drip once we achieve hemostasis from the right radial artery. Also I'm going to obtain an echocardiogram. We'll continue following up with him. 10/22/2019 Patient underwent a cardiac catheterization yesterday which did not reveal any obstructive coronary artery disease. He continues to be in an atrial flutter this morning with a heart rate around 9200. He is on a Cardizem drip which we will discontinue. We will increase his dose of beta giselle. Patient also continues to be on IV heparin, we will change him over to Eliquis. His LV function is normal per echo reviewed by Dr. Coburn. We will given a one-time dose of Rythmol to see if he converts to normal sinus rhythm. We will continue to observe him for 24 hours. 10/24/2019 Patient was seen and examined this morning, he continues to be in a flutter, heart rate under good control. Our plan is to let the patient go today. We will send him home on Eliquis 5 mg one tablet by mouth twice a day along with amiodarone 200 mg one tablet by mouth 3 times a day. We will make him a follow- up appointment to see Dr. Coburn in the office, an outpatient cardioversion will be scheduled if patient has not converted to normal sinus rhythm. This was all discussed with the patient in detail. Objective - Vital Signs Vital signs: Vital Signs Temp 98.1 F 10/24/19 11:41 Pulse 81 10/24/19 11:43 Resp 16 10/24/19 11:43 BP 131/91 10/24/19 11:41 Pulse Ox 99 10/24/19 11:41 Intake & Output 10/23/19 10/24/19 10/24/19 18:59 06:59 18:59 Intake Total 820 419.167 200 Output Total 1200 Balance -380 419.167 200 Weight 94.3 kg Intake: Intake, IV Titration 419.167 Amount Amiodarone 300 mg In 419.167 Dextrose 5% in Water 250 ml @ 0.5 MG/MIN 25 mls/hr IV .Q10H [facility] Rx#: [id number] Oral 820 200 Output: Urine 1200 Other: Voiding Method Urinal Urinal # Voids 1 1 - Exam PHYSICAL EXAMINATION: GENERAL: 48-year-old gentleman in no acute distress at the time of my examination HEENT: Head is atraumatic, normocephalic. Pupils equal, round. Sclera anicteric. Conjunctiva are clear. Mucous membranes of the mouth are moist. Neck is supple. There is no elevated jugular venous pressure. No carotid bruit is heard. HEART EXAMINATION: Heart S1, S2 irregularly irregular . CHEST EXAMINATION: Lungs are clear to auscultation and precussion. No chest wall tenderness is noted on palpation or with deep breathing. ABDOMEN: Soft, nontender. Bowel sounds are heard. No organomegaly noted. EXTREMITIES: 2+ peripheral pulses with no evidence of peripheral edema and no calf tenderness noted. Right radial site clean and dry, good distal pulse NEUROLOGIC patient is awake, alert and oriented 3. . - Labs CBC & Chem 7: 10/24/19 05:45 10/22/19 20:03 Labs: Abnormal Lab Results - Last 24 Hours (Table) 10/22/19 Range/Units 22:25 U Benzodiazepines Scrn Positive H (Negative) ng/mL Assessment and Plan Plan: Assessment and plan #1 chest discomfort, EKG suggestive of possible STEMI on arrival, patient was taken to the cardiac catheterization lab, not found to have any obstructive coronary artery disease #2 typical atrial flutter with 2 to one block Plan From cardiology's perspective, patient may be able to be discharged home today on Eliquis 5 mg one tablet by mouth twice a day along with amiodarone 200 mg one tablet by mouth 3 times a day. Follow-up appointment will be made with Dr. Coburn in the office. Outpatient elective cardioversion will be scheduled. DNP note has been reviewed, I agree with a documented findings and plan of care. Patient was seen and examined.
--- NOTE | 2019-10-24 20:16 | P.DS ---
Providers Date of admission: 10/21/19 16:38 Expected date of discharge: 10/24/19 Attending physician: Jorge Diaz Consults: 10/21/19 16:38 Consult Physician Stat Consulting Provider: Dave Irwin Reason/Comments: ACS, r/o stemi Do you want consulting provider notified?: Already Contacted Primary care physician: Irena Wang [facility] Course: Chief Complaint: Chest tightness History of presenting complaint: This is a pleasant 48-year-old patient who follows with Dr. Rosa Wang. Patient also in good health normally. For 2 weeks patient has been feeling somewhat off. Described himself as feeling a little bit short of breath. Also describes having some chest tightness. Sometimes going down the left arm. Also social dizziness lightheadedness some perspiration. Presented to the ER. Patient does state that he had a prior [place] and was treated at [facility]. He had no coronary intervention. Does not take any medications. In the ER patient is felt to have a ST elevation myocardial infarction and patient was taken to the cardiac cath last emergency. Showed normal coronaries. EKG had shown atrial flutter with 2:1 block. Patient yesterday was arrested from his workplace and taken to the residential for which is presented. Patient has a officer with him in the room. Denies any leg swelling. No fever no chills Admitted with-atrial flutter with rate uncontrolled. Cardiac catheter showing revealed normal coronaries. No acute [place]. Given Rythmol. Remained in A. fib flutter. Started IV amiodarone. PE ruled out. Today-patient atrial flutter controlled. Cleared by encouraged to go home. Discussed with the patient. Consultation: Dr. Coburn from cardiology Physical examination: VITAL SIGNS: 98.1, 98, 16, 131/91, 99% on room air GENERAL: BMI 30.1, laying in bed, comfortable. EYES: Pupils equal. Conjunctiva normal. HEENT: External appearance of nose and ears normal, oral cavity grossly normal. NECK: JVD not raised; masses not palpable. HEART: First and second heart sounds are normal; no edema. LUNGS: Respiratory rate normal; clear to auscultation. ABDOMEN: Soft, nontender, liver spleen not palpable, no masses palpable. PSYCH: Alert and oriented x3; mood and affect normal. INVESTIGATIONS, reviewed in the clinical context: White count 7.5 hemoglobin 13.2 Previous testing White count 7.9 hemoglobin 7.7 platelets 223 potassium 4.5 creatinine 0.87 Troponin I less than 0.012 TSH 1.030 EKG tracing personally reviewed by me-right bundle branch block pattern with 2:[address] elevation Chest x-ray film personally reviewed by me-portable some right diaphragm elevation 2-D echocardiogram-severe concentric LVH, EF of 50-55% Chest CTA-negative for PE Assessment: -New onset atrial flutter with 2:1 block, symptomatic, POA. Given Rythmol. Still remained in atrial flutter fibrillation. Then placed on amiodarone-rate controlled -Cardiac catheterization revealing normal coronaries -Obesity BMI 30.1 -Essential hypertension -Hypertensive heart disease -Pulmonary embolism ruled out Disposition: Intermediate Patient Condition at Discharge: Stable Plan - Discharge Summary Discharge Rx Participant: Yes New Discharge Prescriptions: New Oxymetazoline 0.05% Nasl [place] [Afrin 0.05% Nasal [place]] 2 spray NASAL BID bottle Amiodarone [Cordarone] 200 mg PO DIRECTED #50 tab Apixaban [Eliquis] 5 mg PO BID #60 tab Continue Nitroglycerin Sl Tabs [Nitrostat] 0.4 mg SUBLINGUAL Q5M PRN PRN Reason: Chest Pain Discontinued Aspirin 325 mg PO ONCE Metoprolol (Unknown Dose) 1 tab PO DAILY Discharge Medication List Nitroglycerin Sl Tabs [Nitrostat] 0.4 mg SUBLINGUAL Q5M PRN 10/21/19 [History] Amiodarone [Cordarone] 200 mg PO DIRECTED #50 tab 10/24/19 [Rx] Apixaban [Eliquis] 5 mg PO BID #60 tab 10/24/19 [Rx] Oxymetazoline 0.05% Nasl [place] [Afrin 0.05% Nasal [place]] 2 spray NASAL BID bottle 10/24/19 [Rx] Follow up Appointment(s)/Referral(s): Dave Irwin MD [STAFF PHYSICIAN] - 10/31/19 4:30 pm Irena Wagn MD [Primary Care Provider] - 1-2 days (Office will call you with an appointment ) Patient Instructions/Handouts: Atrial Flutter (GEN), Chest Pain (GEN) Activity/Diet/Wound Care/Special Instructions: avoid excess caffeine get f/u orders from cardiology Discharge Disposition: DC/TRNS [employer]INE [employer]PER[employer]/[facility] W/ [employer]
== END 2019-10-24 12:50 | DRG 287 ==
LOC: EC 16:07 → 2SICU 16:38 → 3SCARD 17:39
PROVIDERS: ADMIT Hospitalist; ATTEND Hospitalist
PROC: 4A023N7 Measurement of Cardiac Sampling and Pressure, Left Heart, Percutaneous Approach (ICD-10-PCS; principal; 2019-10-21 16:48)
PROC: B2111ZZ Fluoroscopy of Multiple Coronary Arteries using Low Osmolar Contrast (ICD-10-PCS; principal; 2019-10-21 16:48)
DX: I48.3 Typical atrial flutter (principal); E66.9 Obesity, unspecified; I45.10 Unspecified right bundle-branch block; F17.200 Nicotine dependence, unspecified, uncomplicated; I11.9 Hypertensive heart disease without heart failure; I48.91 Unspecified atrial fibrillation; Z68.30 Body mass index [BMI] 30.0-30.9, adult; Z80.1 Family history of malignant neoplasm of trachea, bronchus and lung; I25.2 Old myocardial infarction; Z11.59 Encounter for screening for other viral diseases
CPT/HCPCS: 36415; 71045; 71275; 80053; 80306; 82550; 83605; 83690; 83735; 84443; 84484; 85025; 85379; 85610; 85730; 93005; 93306; 93458; 99285

== ENCOUNTER 2019-11-25 09:46 | Observation (INO) | payer OTHER ==
--- NOTE | 2019-11-25 10:02 | ED ---
General Adult HPI - General Stated complaint: Chest pain Time Seen by Provider: 11/25/19 09:46 Source: patient, RN notes reviewed, old records reviewed - History of Present Illness Initial comments: This is a 49-year-old male who presents to the emergency department from the longterm for chest pain. Patient has a history of atrial flutter. Patient also has a history of having had an VT in the past. Patient states he started having chest pain on the left side at about 2 AM and it was coming and going and now it is consistent. Patient states the pain radiates down his left arm. Patient states she's also been short of breath. Patient denies any diaphoresis. Patient denies any nausea vomiting per patient denies any headache patient denies numbness weakness. Patient denies lightheadedness or dizziness. Patient denies any recent fever chills or cough. Patient denies abdominal pain. - Related Data Home Medications Medication Instructions Recorded Confirmed Amiodarone [Cordarone] 200 mg PO DAILY 11/25/19 11/25/19 Lisinopril [Zestril] 10 mg PO DAILY 11/25/19 11/25/19 Previous Rx's Medication Instructions Recorded Apixaban [Eliquis] 5 mg PO BID #60 tab 10/24/19 Oxymetazoline 0.05% Nasl [place] 2 spray NASAL BID bottle 10/24/19 [Afrin 0.05% Nasal [place]] Allergies Allergy/AdvReac Type Severity Reaction Status Date / Time No Known Allergies Allergy Verified 11/25/19 10:15 Review of Systems ROS Statement: Those systems with pertinent positive or pertinent negative responses have been documented in the HPI. ROS Other: All systems not noted in ROS Statement are negative. Past Medical History Past Medical History: Myocardial Infarction (VT) Last Myocardial Infarction Date:: unknown History of Any Multi-Drug Resistant Organisms: None Reported Past Surgical History: No Surgical Hx Reported Past Anesthesia/Blood Transfusion Reactions: No Reported Reaction Smoking Status: Never smoker Past Alcohol Use History: Occasional Past Drug Use History: None Reported - Past Family History Father Family Medical History: Cancer Additional Family Medical History / Comment(s): Lung CA Mother History Unknown: Yes General Exam - General Exam Comments Initial Comments: GENERAL: Patient is well-developed and well-nourished. Patient is nontoxic and well- hydrated and is in mild distress. ENT: Neck is soft and supple. No significant lymphadenopathy is noted. Oropharynx is clear. Moist mucous membranes. Neck has full range of motion without eliciting any pain. EYES: The sclera were anicteric and conjunctiva were pink and moist. Extraocular movements were intact and pupils were equal round and reactive to light. Eyelids were unremarkable. PULMONARY: Unlabored respirations. Good breath sounds bilaterally. No audible rales rhonchi or wheezing was noted. CARDIOVASCULAR: There is a regular rate and rhythm without any murmurs gallops or rubs. ABDOMEN: Soft and nontender with normal bowel sounds. SKIN: Skin is clear with no lesions or rashes and otherwise unremarkable. NEUROLOGIC: Patient is alert and oriented x3. Cranial nerves II through XII are grossly intact. Motor and sensory are also intact. Normal speech, volume and content. Symmetrical smile. MUSCULOSKELETAL: Normal extremities with adequate strength and full range of motion. LYMPHATICS: No significant lymphadenopathy is noted PSYCHIATRIC: Normal psychiatric evaluation. Course Vital Signs 11/25/19 11/25/19 09:48 11:00 Temperature 98.4 F Pulse Rate 97 81 Respiratory 18 20 Rate Blood Pressure 125/95 122/91 O2 Sat by Pulse 96 96 Oximetry Medical Decision Making - Medical Decision Making EKG shows atrial flutter with a 3-1 block. QRS is 140 and there is no obvious ST segment elevation. Chest x-ray shows no acute abnormality. Patient has unstable angina but I will not be starting any blood thinners patient is oriented eliquis. I spoke with Dr. Diaz agreed to admit the patient admitted the patient wrote admitting orders. - Lab Data Result diagrams: 11/25/19 10:12 11/25/19 10:12 Lab Results 11/25/19 11/25/19 11/25/19 Range/Units 10:12 10:12 10:12 WBC 6.5 (3.8-10.6) k/uL RBC 5.40 (4.30-5.90) m/uL Hgb 17.0 (13.0-17.5) gm/dL Hct 51.5 (39.0-53.0) % MCV 95.3 (80.0-100.0) fL MCH 31.5 (25.0-35.0) pg MCHC 33.0 (31.0-37.0) g/dL RDW 12.4 (11.5-15.5) % Plt Count 222 (150-450) k/uL Neutrophils % 56 % Lymphocytes % 29 % Monocytes % 7 % Eosinophils % 5 % Basophils % 1 % Neutrophils # 3.7 (1.3-7.7) k/uL Lymphocytes # 1.9 (1.0-4.8) k/uL Monocytes # 0.5 (0-1.0) k/uL Eosinophils # 0.3 (0-0.7) k/uL Basophils # 0.0 (0-0.2) k/uL PT 9.9 (9.0-12.0) sec INR 1.0 (<1.2) APTT 24.2 (22.0-30.0) sec Sodium 139 (137-145) mmol/L Potassium 3.8 (3.5-5.1) mmol/L Chloride 108 H (98-107) mmol/L Carbon Dioxide 20 L (22-30) mmol/L Anion Gap 11 mmol/L BUN 11 (9-20) mg/dL Creatinine 0.90 (0.66-1.25) mg/dL Est GFR (CKD-EPI)AfAm >90 (>60 ml/min/1.73 sqM) Est GFR (CKD-EPI)NonAf >90 (>60 ml/min/1.73 sqM) Glucose 97 (74-99) mg/dL Calcium 9.9 (8.4-10.2) mg/dL Magnesium 2.0 (1.6-2.3) mg/dL Total Bilirubin 0.5 (0.2-1.3) mg/dL AST 44 (17-59) U/L ALT 79 H (4-49) U/L Alkaline Phosphatase 63 (38-126) U/L Troponin I (0.000-0.034) ng/mL Total Protein 7.6 (6.3-8.2) g/dL Albumin 4.3 (3.5-5.0) g/dL 11/25/19 Range/Units 10:12 WBC (3.8-10.6) k/uL RBC (4.30-5.90) m/uL Hgb (13.0-17.5) gm/dL Hct (39.0-53.0) % MCV (80.0-100.0) fL MCH (25.0-35.0) pg MCHC (31.0-37.0) g/dL RDW (11.5-15.5) % Plt Count (150-450) k/uL Neutrophils % % Lymphocytes % % Monocytes % % Eosinophils % % Basophils % % Neutrophils # (1.3-7.7) k/uL Lymphocytes # (1.0-4.8) k/uL Monocytes # (0-1.0) k/uL Eosinophils # (0-0.7) k/uL Basophils # (0-0.2) k/uL PT (9.0-12.0) sec INR (<1.2) APTT (22.0-30.0) sec Sodium (137-145) mmol/L Potassium (3.5-5.1) mmol/L Chloride (98-107) mmol/L Carbon Dioxide (22-30) mmol/L Anion Gap mmol/L BUN (9-20) mg/dL Creatinine (0.66-1.25) mg/dL Est GFR (CKD-EPI)AfAm (>60 ml/min/1.73 sqM) Est GFR (CKD-EPI)NonAf (>60 ml/min/1.73 sqM) Glucose (74-99) mg/dL Calcium (8.4-10.2) mg/dL Magnesium (1.6-2.3) mg/dL Total Bilirubin (0.2-1.3) mg/dL AST (17-59) U/L ALT (4-49) U/L Alkaline Phosphatase (38-126) U/L Troponin I <0.012 (0.000-0.034) ng/mL Total Protein (6.3-8.2) g/dL Albumin (3.5-5.0) g/dL Disposition Clinical Impression: Unstable angina pectoris Disposition: ADMITTED IP TO THIS HOSP Referrals: Irena Wang MD [Primary Care Provider] - 1-2 days Time of Disposition: 11:18
[2019-11-25] MEDS ORDERED: NITROGLYCERIN OINT 1 INCH/GM PACKET TOPICAL STA (10:11)
[2019-11-25] MEDS ORDERED: ASPIRIN 81 MG PO STA (10:11)
[2019-11-25 10:26] LABS: Basophils % (A) 1 %; Eosinophils # (A) 0.3 k/uL (0-0.7); Eosinophils % (A) 5 %; HCT 51.5 % (39.0-53.0); Lymphocytes # (A) 1.9 k/uL (1.0-4.8); Lymphocytes % (A) 29 %; MCH 31.5 pg (25.0-35.0); MCV 95.3 fL (80.0-100.0); Mean Platelet Volume 7.8; Monocytes # (A) 0.5 k/uL (0-1.0); Monocytes % (A) 7 %; Neutrophils # (A) 3.7 k/uL (1.3-7.7); Neutrophils % (A) 56 %; Platelet Count 222 k/uL (150-450); RDW 12.4 % (11.5-15.5); WBC 6.5 k/uL (3.8-10.6)
[2019-11-25 10:35] LABS: ALT 79 U/L (4-49); AST 44 U/L (17-59); African American GFR (CKD) >90 (>60 ml/min/1.73 sqM); Albumin 4.3 g/dL (3.5-5.0); Alkaline Phosphatase 63 U/L (38-126); Anion Gap 11 mmol/L; Blood Urea Nitrogen 11 mg/dL (9-20); Calcium 9.9 mg/dL (8.4-10.2); Carbon Dioxide 20 mmol/L (22-30); Chloride 108 mmol/L (98-107); Glucose 97 mg/dL (74-99); Non-African American GFR(CKD) >90 (>60 ml/min/1.73 sqM); Potassium 3.8 mmol/L (3.5-5.1); Sodium 139 mmol/L (137-145); Total Bilirubin 0.5 mg/dL (0.2-1.3); Total Protein 7.6 g/dL (6.3-8.2)
[2019-11-25 10:37] LABS: Partial Thromboplastin Time 24.2 sec (22.0-30.0); Prothrombin Time 9.9 sec (9.0-12.0)
--- NOTE | 2019-11-25 10:56 | XR ---
EXAMINATION TYPE: XR chest 2V DATE OF EXAM: 11/25/2019 COMPARISON: 10/21/2019 TECHNIQUE: PA and lateral views submitted. HISTORY: Difficulty breathing FINDINGS: The lungs are clear and there is no pneumothorax, pleural effusion, or focal pneumonia. No overt fa ilure. Heart size stable. Hypertrophic change of the spine. IMPRESSION: 1. No acute process.
[2019-11-25] MEDS ORDERED: NITROGLYCERIN SL TABS 0.4 MG TAB SUBLINGUAL PRN (11:18)
[2019-11-25] MEDS: OXYMETAZOLINE 0.05% NASL SPRAY 1 SPRAY BOTTLE NASAL STA (11:46)
[2019-11-25] MEDS: NITROGLYCERIN OINT 1 INCH/GM PACKET TOPICAL SCH ×2 (14:23→17:15)
[2019-11-25] MEDS ORDERED: ACETAMINOPHEN TAB 325 MG TAB PO PRN (16:52)
[2019-11-25] MEDS ORDERED: OXYMETAZOLINE 0.05% NASL SPRAY 1 SPRAY BOTTLE NASAL SCH (21:00)
[2019-11-25] MEDS: APIXABAN 5 MG TAB PO SCH (21:04)
--- NOTE | 2019-11-25 22:25 | P.HPIM ---
History of Present Illness H&P Date: 11/25/19 Chief Complaint: Palpitation History of presenting complaint: This is a pleasant 48-year-old patient who follows with Dr. Rosa Wang. Patient was here in end of September with not feeling well. Cardiac catheterization showed normal coronaries. Patient found to be in atrial flutter uncontrolled. Symptoms are much better controlled when discharged. Patient did not have a follow-up since being discharged. Patient now presents last evening which became dizzy palpitations. Took his pulse visual 90s. Has a chief learning officer from the group home and the bedside. Denies any fever or chills. No perspiration. Review of systems: GEN.: Tired EYES: None HEENT: None NECK: None RESPIRATORY: As above CARDIOVASCULAR: As above GASTROINTESTINAL: None GENITOURINARY: None MUSCULOSKELETAL: None LYMPHATICS: None HEMATOLOGICAL: None PSYCHIATRY: None NEUROLOGICAL: None Past medical history to include: Negative cardiac catheterization, atrial flutter fibrillation Social history: No smoking. Alcohol occasionally. Denies use of recreational drugs. Patient has a auto repair shop. His . Currently arraainged-in the presence of police custody Family history: Lung cancer Physical examination: VITAL SIGNS: 97.8, 70, 18, 144/91, 95% room air GENERAL: BMI 31.6, sitting on bed, awake. handcuffs on his feet EYES: Pupils equal. Conjunctiva normal. HEENT: External appearance of nose and ears normal, oral cavity grossly normal. NECK: JVD not raised; masses not palpable. HEART: Heart sounds irregular; no edema. LUNGS: Respiratory rate normal; clear to auscultation. ABDOMEN: Soft, nontender, liver spleen not palpable, no masses palpable. PSYCH: Alert and oriented x3; mood and affect normal. NEUROLOGICAL: Cranial nerves grossly intact; no facial asymmetry, power and sensation grossly intact. LYMPHATICS: No lymph nodes palpable in the axilla and neck INVESTIGATIONS, reviewed in the clinical context: White count 6.5 hemoglobin 17 potassium 3.8 creatinine 0.9 EKG tracing personally reviewed by me-atrial flutter with a rate of 90s 2-D echocardiogram-severe concentric LVH, EF of 50-55% Assessment: -Persistent atrial flutter with 2:1 block, symptomatic, POA -Recent Cardiac catheterization revealing normal coronaries -Obesity BMI 30.1 -Essential hypertension -Hypertensive heart disease -Patient is taking oxymetazoline nasal spray-most likely cause of this precipitation of his symptoms. That'll be discontinued Plan: Patient's currently on Cordarone, eliquis, aspirin, Zestril,. Patient is be noted that patient is taking oxymetazoline nasal spray. discontinued. Cardiology consulted. Past Medical History Past Medical History: Atrial Fibrillation, Atrial Flutter, Chest Pain / Angina, Myocardial Infarction (ID) Last Myocardial Infarction Date:: unknown History of Any Multi-Drug Resistant Organisms: None Reported Past Surgical History: Heart Catheterization Past Anesthesia/Blood Transfusion Reactions: No Reported Reaction Past Psychological History: No Psychological Hx Reported Smoking Status: Never smoker Past Alcohol Use History: Occasional Past Drug Use History: None Reported - Past Family History Father Family Medical History: Cancer Additional Family Medical History / Comment(s): Lung CA Mother History Unknown: Yes Medications and Allergies Home Medications Medication Instructions Recorded Confirmed Type Apixaban [Eliquis] 5 mg PO BID #60 tab 10/24/19 11/25/19 Rx Oxymetazoline 0.05% Nasl [place] 2 spray NASAL BID bottle 10/24/19 11/25/19 Rx [Afrin 0.05% Nasal [place]] Amiodarone [Cordarone] 200 mg PO DAILY 11/25/19 11/25/19 History Lisinopril [Zestril] 10 mg PO DAILY 11/25/19 11/25/19 History Allergies Allergy/AdvReac Type Severity Reaction Status Date / Time No Known Allergies Allergy Verified 11/25/19 10:15 Physical Exam Vitals: Vital Signs Temp Pulse Pulse Resp BP BP Pulse Ox 11/25/19 20:00 97.8 F 70 18 144/91 95 11/25/19 15:29 98 F 68 68 H 116/71 97 11/25/19 12:00 98.6 F 92 18 133/83 95 11/25/19 11:52 81 20 129/91 96 11/25/19 11:00 81 20 122/91 96 11/25/19 09:48 98.4 F 97 18 125/95 96 Intake and Output 11/25/19 11/25/19 11/25/19 06:59 14:59 22:59 Other: # Voids 1 Weight 99.79 kg Results CBC & Chem 7: 11/25/19 10:12 11/25/19 10:12 Labs: Abnormal Lab Results - Last 24 Hours (Table) 11/25/19 Range/Units 10:12 Chloride 108 H (98-107) mmol/L Carbon Dioxide 20 L (22-30) mmol/L ALT 79 H (4-49) U/L Thrombosis Risk Factor Assmnt - Choose All That Apply Any of the Below Risk Factors Present?: Yes Each Factor Represents 1 point: Acute ID, Age 41-60 years, Medical pt on bed rest, Obesity (BMI >25) Other Risk Factors: No Thrombosis Risk Factor Assessment Total Risk Factor Score: 4 Thrombosis Risk Factor Assessment Level: Moderate Risk
[2019-11-26 04:28] LABS: Cholesterol 213 mg/dL (<200); HDL Cholesterol 54 mg/dL (40-60); LDL Cholesterol,Calculated 135 mg/dL (0-99); Triglycerides 122 mg/dL (<150)
[2019-11-26] MEDS: APIXABAN 5 MG TAB PO SCH ×2 (09:05→21:08)
[2019-11-26] MEDS: METOPROLOL TARTRATE 25 MG TAB PO SCH ×2 (09:06→21:08)
[2019-11-26] MEDS: ASPIRIN 325 MG TAB PO SCH (09:06)
[2019-11-26] MEDS: LISINOPRIL 10 MG TAB PO SCH (09:06)
[2019-11-26] MEDS: AMIODARONE 200 MG TAB PO SCH (09:06)
[2019-11-26 09:33] LABS: African American GFR (CKD) >90 (>60 ml/min/1.73 sqM); Anion Gap 8 mmol/L; Blood Urea Nitrogen 16 mg/dL (9-20); Calcium 9.5 mg/dL (8.4-10.2); Carbon Dioxide 25 mmol/L (22-30); Chloride 107 mmol/L (98-107); Glucose 95 mg/dL (74-99); Magnesium 1.9 mg/dL (1.6-2.3); Non-African American GFR(CKD) >90 (>60 ml/min/1.73 sqM); Potassium 4.5 mmol/L (3.5-5.1); Sodium 140 mmol/L (137-145)
--- NOTE | 2019-11-26 11:01 | P.PN ---
Subjective Progress Note Date: 11/26/19 Principal diagnosis: Rest pain in atrial flutter This is a 49-year-old gentleman who was admitted to this hospital recently with a diagnosis of atrial flutter. Patient was treated with amiodarone for rate control. He was sent home on anticoagulation therapy and amiodarone. He was supposed to have cardioversion later on. He is now admitted to the hospital with episodes of dizziness and left-sided chest pain. He claims that he gets lightheaded. The pain is on the left side of the chest which seemed to be related to movements of the left arm. Patient had a normal Cardec catheterization recently. His cardiac enzymes are negative. The pains appear to be noncardiac in nature. Patient had a bout of wide-complex tachycardia. Patient has underlying right bundle-branch block pattern. It appeared to be slow atrial flutter/atrial tachycardia with one on one conduction. Patient is advised to consider cardioversion and ALEKSEY. Patient is thinking about it. Meanwhile of LAD small dose of beta giselle and continue with amiodarone and anticoagulation Objective - Vital Signs Vital signs: Vital Signs Temp 98.0 F 11/26/19 04:00 Pulse 110 H 11/26/19 08:00 Resp 16 11/26/19 08:00 BP 155/78 11/26/19 08:00 Pulse Ox 92 L 11/26/19 08:00 Intake & Output 11/25/19 11/26/19 11/26/19 18:59 06:59 18:59 Weight 99.79 kg 95 kg Other: # Voids 2 - Exam GENERAL EXAM: Patient is alert and oriented and doesn't appear to be in any acute distress HEENT: Normocephalic. Normal reaction of pupils, equal size, normal range of extraocular motion. No erythema or exudates in the throat. NECK: No masses, no nuchal rigidity. CHEST: No chest wall deformity. LUNGS: Equal air entry with no crackles or wheeze. HEART: S1 and S2 normal . Irregular heart sounds ABDOMEN: No hepatosplenomegaly, normal bowel sounds, no guarding or rigidity. SKIN: No rashes CENTRAL NERVOUS SYSTEM: No focal deficits. EXTREMITIES: No cyanosis, clubbing or edema. - Labs CBC & Chem 7: 11/25/19 10:12 11/26/19 09:08 Labs: Abnormal Lab Results - Last 24 Hours (Table) 11/25/19 Range/Units 10:12 Cholesterol 213 H (<200) mg/dL LDL Cholesterol, Calc 135 H (0-99) mg/dL Assessment and Plan (1) Atrial flutter Current Visit: No Status: Acute Code(s): I48.92 - UNSPECIFIED ATRIAL FLUTTER SNOMED Code(s): 9745194 (2) Chest pain Current Visit: No Status: Acute Code(s): R07.9 - CHEST PAIN, UNSPECIFIED SNOMED Code(s): 22908700 Plan: Patient cardiac enzymes are negative. His his chest pains are atypical. His heart rate is mostly controlled with occasional 1 to one conduction with heart rates up to 170. Patient is advised to have ALEKSEY cardioversion. If he consents, we'll do the cardioversion tomorrow.
--- NOTE | 2019-11-26 12:47 | ECHOF ---
Referral Reason:VT MEASUREMENTS -------- HEIGHT: 182.9 cm WEIGHT: 90.7 kg BP: IVSd: 1.3 cm (0.6 - 1.1) LVIDd: 4.3 cm (3.9 - 5.3) LVPWd: 1.8 cm (0.6 - 1.1) IVSs: 1.5 cm LVIDs: 3.6 cm LVPWs: 1.5 cm LA Diam: 4.3 cm (2.7 - 3.8) LAESV Index (A-L): 24.65 ml/m Ao Diam: 2.9 cm (2.0 - 3.7) AV Cusp: 1.7 cm (1.5 - 2.6) LA Diam: 5.1 cm (2.7 - 3.8) MV EXCURSION: 14.230 mm (> 18.000) MV EF SLOPE: 148 mm/s (70 - 150) EPSS: 0.6 cm MV E Manuel: 0.94 m/s MV DecT: 110 ms MV A Manuel: 0.53 m/s MV E/A Ratio: 1.78 RAP: 5.00 mmHg RVSP: 12.64 mmHg FINDINGS -------- Undetermined rhythm. This was a technically good study. The left ventricular size is normal. There is mild concentric left ventricular hypertrophy. Overa ll left ventricular systolic function is low-normal with, an EF between 50 - 55 %. The right ventricle is normal in size. The left atrium is moderately dilated. Normal LA size by volume 22+/-6 ml/m2. The right atrial size is normal. There is mild aortic valve sclerosis. There is no evidence of aortic regurgitation. Mild mitral annular calcification present. Mild mitral regurgitation is present. Mild tricuspid regurgitation present. Right ventricular systolic pressure is normal at < 35 mmHg. There is no pulmonic regurgitation present. The aortic root size is normal. There is no pericardial effusion. CONCLUSIONS -------- 1. Undetermined rhythm. 2. This was a technically good study. 3. The left ventricular size is normal. 4. There is mild concentric left ventricular hypertrophy. 5. Overall left ventricular systolic function is low-normal with, an EF between 50 - 55 %. 6. The right ventricle is normal in size. 7. Normal LA size by volume 22+/-6 ml/m2. 8. The right atrial size is normal. 9. There is mild aortic valve sclerosis. 10. Mild mitral annular calcification present. 11. Mild mitral regurgitation is present. 12. Mild tricuspid regurgitation present. 13. Right ventricular systolic pressure is normal at < 35 mmHg. 14. There is no pulmonic regurgitation present. 15. The aortic root size is normal. 16. There is no pericardial effusion. ASSISTANT SALES DIRECTOR: Shweta Castañeda RDCS
--- NOTE | 2019-11-26 17:04 | P.PN ---
Progress Note - Text Progress Note Date: 11/26/19 Chief Complaint: Palpitation History of presenting complaint: This is a pleasant 48-year-old patient who follows with Dr. Rosa Wang. Patient was here in end of September with not feeling well. Cardiac catheterization showed normal coronaries. Patient found to be in atrial flutter uncontrolled. Symptoms are much better controlled when discharged. Patient did not have a follow-up since being discharged. Patient now presents last evening which became dizzy palpitations. Took his pulse visual 90s. Has a multisensor intelligence officer from the group home and the bedside. Denies any fever or chills. No perspiration. Admitted with symptomatic atrial flutter-do rate control. Patient also had been taking Alex-Synephrine nasal drops. Today-sitting up in bed. Occasional symptoms. Cardiology is planning a cardioversion. Review of systems: Was done for constitutional, cardiovascular, GI, pulmonary. relevant finding as above Active Medications Acetaminophen (Tylenol Tab) 650 mg PO Q6HR PRN PRN Reason: Fever and/ or Pain Last Admin: 11/25/19 17:15 Dose: 650 mg Documented by: Amiodarone HCl (Cordarone) 200 mg PO DAILY [facility] Last Admin: 11/26/19 09:06 Dose: 200 mg Documented by: Apixaban (Eliquis) 5 mg PO BID [facility] Last Admin: 11/26/19 09:05 Dose: 5 mg Documented by: Aspirin (Aspirin) 325 mg PO DAILY [facility] Last Admin: 11/26/19 09:06 Dose: 325 mg Documented by: Lisinopril (Zestril) 10 mg PO DAILY [facility] Last Admin: 11/26/19 09:06 Dose: 10 mg Documented by: Metoprolol Tartrate (Lopressor) 25 mg PO BID [facility] Last Admin: 11/26/19 09:06 Dose: 25 mg Documented by: Nitroglycerin (Nitrostat) 0.4 mg SUBLINGUAL Q5M PRN PRN Reason: Chest Pain Physical examination: VITAL SIGNS: 98 point, 77, 16, 119/79, 97% GENERAL: Sitting up in the bed, comfortable EYES: Pupils equal. Conjunctiva normal. HEENT: External appearance of nose and ears normal, oral cavity grossly normal. NECK: JVD not raised; masses not palpable. HEART: Heart sounds irregular; no edema. LUNGS: Respiratory rate normal; clear to auscultation. ABDOMEN: Soft, nontender, liver spleen not palpable, no masses palpable. PSYCH: Alert and oriented x3; mood and affect normal. INVESTIGATIONS, reviewed in the clinical context: Potassium 4.5 creatinine 0.98 Previous testing White count 6.5 hemoglobin 17 potassium 3.8 creatinine 0.9. LDL 135 EKG tracing personally reviewed by me-atrial flutter with a rate of 90s 2-D echocardiogram-severe concentric LVH, EF of 50-55% Troponin I 3 negative Assessment: -Persistent atrial flutter with 2:1 block, symptomatic, POA -Recent Cardiac catheterization revealing normal coronaries -Obesity BMI 30.1 -Essential hypertension -Hypertensive heart disease -Patient is taking oxymetazoline nasal spray-most likely cause of this precipitation of his symptoms. That'll be discontinued Plan: -Continue current medications. Cardioversion being planned by cardiogenic tomorrow. Will give saline nasal spray.
[2019-11-26] MEDS: OXYMETAZOLINE 0.05% NASL SPRAY 1 SPRAY BOTTLE NASAL STA (17:42)
[2019-11-26] MEDS: SODIUM CHLORIDE 0.65% NASAL SPRAY 44 ML BTL NASAL SCH ×2 (21:06→21:08)
[2019-11-27] MEDS: AMIODARONE 200 MG TAB PO SCH (07:58)
[2019-11-27] MEDS: APIXABAN 5 MG TAB PO SCH ×2 (07:58→20:09)
[2019-11-27] MEDS: METOPROLOL TARTRATE 25 MG TAB PO SCH ×2 (07:58→20:08)
[2019-11-27] MEDS: ASPIRIN 325 MG TAB PO SCH (07:58)
[2019-11-27] MEDS: LISINOPRIL 10 MG TAB PO SCH (07:59)
--- NOTE | 2019-11-27 11:16 | P.PN ---
Subjective Progress Note Date: 11/27/19 Principal diagnosis: Chest pain and atrial flutter This is a 49-year-old gentleman who was admitted to this hospital recently with a diagnosis of atrial flutter. Patient was treated with amiodarone for rate control. He was sent home on anticoagulation therapy and amiodarone. He was supposed to have cardioversion later on. He is now admitted to the hospital with episodes of dizziness and left-sided chest pain. He claims that he gets lightheaded. The pain is on the left side of the chest which seemed to be related to movements of the left arm. Patient had a normal Cardec catheterization recently. His cardiac enzymes are negative. The pains appear to be noncardiac in nature. Patient had a bout of wide-complex tachycardia. Patient has underlying right bundle-branch block pattern. It appeared to be slow atrial flutter/atrial tachycardia with one on one conduction. Patient is advised to consider cardioversion and ALEKSEY. Patient is thinking about it. Meanwhile of LAD small dose of beta giselle and continue with amiodarone and anticoagulation. 11/27/2019: Patient remains stable. Still atrial flutter. Patient did not have cardioversion today because of scheduling issues. His pain control for the procedure tomorrow. This will be done by Dr. Coburn. Meanwhile we'll continue current medical therapy Objective - Vital Signs Vital signs: Vital Signs Temp 98.1 F 11/27/19 08:00 Pulse 84 11/27/19 08:00 Resp 16 11/27/19 08:00 BP 134/83 11/27/19 08:00 Pulse Ox 99 11/27/19 08:00 Intake & Output 11/26/19 11/27/19 11/27/19 18:59 06:59 18:59 Weight 92.5 kg Other: # Voids 200 - Exam GENERAL EXAM: Patient is alert and oriented and doesn't appear to be in any acute distress HEENT: Normocephalic. Normal reaction of pupils, equal size, normal range of extraocular motion. No erythema or exudates in the throat. NECK: No masses, no nuchal rigidity. CHEST: No chest wall deformity. LUNGS: Equal air entry with no crackles or wheeze. HEART: S1 and S2 normal . Irregular heart sounds ABDOMEN: No hepatosplenomegaly, normal bowel sounds, no guarding or rigidity. SKIN: No rashes CENTRAL NERVOUS SYSTEM: No focal deficits. EXTREMITIES: No cyanosis, clubbing or edema. - Labs CBC & Chem 7: 11/25/19 10:12 11/26/19 09:08 Assessment and Plan (1) Atrial flutter Current Visit: No Status: Acute Code(s): I48.92 - UNSPECIFIED ATRIAL FLUTTER SNOMED Code(s): 9883587 (2) Chest pain Current Visit: No Status: Acute Code(s): R07.9 - CHEST PAIN, UNSPECIFIED SNOMED Code(s): 53850723 Plan: Patient is stable. To have ALEKSEY cardioversion by Dr. Cobunr tomorrow
--- NOTE | 2019-11-27 12:05 | P.CRDCN ---
History of Present Illness Consult date: 11/26/19 History of present illness: This is a 49-year-old gentleman who was admitted to this hospital recently with a diagnosis of atrial flutter. Patient was treated with amiodarone for rate control. He was sent home on anticoagulation therapy and amiodarone. He was supposed to have cardioversion later on. He is now admitted to the hospital with episodes of dizziness and left-sided chest pain. He claims that he gets lightheaded. The pain is on the left side of the chest which seemed to be related to movements of the left arm. Patient had a normal Cardec catheteriza tion recently. His cardiac enzymes are negative. The pains appear to be noncardiac in nature. Patient had a bout of wide-complex tachycardia. Patient has underlying right bundle-branch block pattern. It appeared to be slow atrial flutter/atrial tachycardia with one on one conduction. Patient is advised to consider cardioversion and ALEKSEY. Patient is thinking about it. Meanwhile of LAD small dose of beta giselle and continue with amiodarone and anticoagulation Past Medical History Past Medical History: Atrial Fibrillation, Atrial Flutter, Chest Pain / Angina, Myocardial Infarction (CT) Last Myocardial Infarction Date:: unknown History of Any Multi-Drug Resistant Organisms: None Reported Past Surgical History: Heart Catheterization Past Anesthesia/Blood Transfusion Reactions: No Reported Reaction Past Psychological History: No Psychological Hx Reported Smoking Status: Never smoker Past Alcohol Use History: Occasional Past Drug Use History: None Reported - Past Family History Father Family Medical History: Cancer Additional Family Medical History / Comment(s): Lung CA Mother History Unknown: Yes Medications and Allergies Home Medications Medication Instructions Recorded Confirmed Type Apixaban [Eliquis] 5 mg PO BID #60 tab 10/24/19 11/25/19 Rx Oxymetazoline 0.05% Nasl [place] 2 spray NASAL BID bottle 10/24/19 11/25/19 Rx [Afrin 0.05% Nasal [place]] Amiodarone [Cordarone] 200 mg PO DAILY 11/25/19 11/25/19 History Lisinopril [Zestril] 10 mg PO DAILY 11/25/19 11/25/19 History Allergies Allergy/AdvReac Type Severity Reaction Status Date / Time No Known Allergies Allergy Verified 11/25/19 10:15 Physical Exam Vitals: Vital Signs Temp Pulse Resp BP Pulse Ox 11/27/19 08:00 98.1 F 84 16 134/83 99 11/27/19 04:00 98 F 66 16 108/70 98 11/27/19 03:37 61 18 11/27/19 00:00 98.8 F 61 18 118/75 95 11/26/19 20:00 98.4 F 76 18 122/70 98 11/26/19 16:00 84 16 134/101 Intake and Output 11/26/19 11/27/19 11/27/19 22:59 06:59 14:59 Other: # Voids 1 200 Weight 92.5 kg GENERAL EXAM: Patient is alert and oriented and doesn't appear to be in any acute distress HEENT: Normocephalic. Normal reaction of pupils, equal size, normal range of extraocular motion. No erythema or exudates in the throat. NECK: No masses, no nuchal rigidity. CHEST: No chest wall deformity. LUNGS: Equal air entry with no crackles or wheeze. HEART: S1 and S2 normal with no audible mumurs or gallops. Regular rhythm, femorals equal on both sides.. ABDOMEN: No hepatosplenomegaly, normal bowel sounds, no guarding or rigidity. SKIN: No rashes CENTRAL NERVOUS SYSTEM: No focal deficits. EXTREMITIES: No cyanosis, clubbing or edema. Results 11/25/19 10:12 11/26/19 09:08 Current Medications Generic Name Dose Route Start Last Admin Trade Name Freq PRN Reason Stop Dose Admin Acetaminophen 650 mg 11/25/19 16:52 11/25/19 17:15 Tylenol Tab PO 650 mg Q6HR PRN Administration Fever and/ or Pain Amiodarone HCl 200 mg 11/26/19 09:00 11/27/19 07:58 Cordarone PO 200 mg DAILY BILL Administration Apixaban 5 mg 11/25/19 21:00 11/27/19 07:58 Eliquis PO 5 mg BID BILL Administration Aspirin 325 mg 11/26/19 09:00 11/27/19 07:58 Aspirin PO 325 mg DAILY BILL Administration Lisinopril 10 mg 11/26/19 09:00 11/27/19 07:59 Zestril PO 10 mg DAILY BILL Administration Metoprolol Tartrate 25 mg 11/26/19 09:00 11/27/19 07:58 Lopressor PO 25 mg BID BILL Administration Nitroglycerin 0.4 mg 11/25/19 11:18 Nitrostat SUBLINGUAL Q5M PRN Chest Pain Sodium Chloride 2 spray 11/26/19 18:00 11/26/19 21:08 [place] NASAL Not Given QID BILL Intake and Output 11/26/19 11/27/19 11/27/19 22:59 06:59 14:59 Other: # Voids 1 200 Weight 92.5 kg 11/25/19 10:12 11/26/19 09:08 EKG Interpretations (text) Showed atrial flutter with controlled ventricular response Assessment and Plan (1) Atrial flutter Current Visit: No Status: Acute Code(s): I48.92 - UNSPECIFIED ATRIAL FLUTTER SNOMED Code(s): 3580932 (2) Chest pain Current Visit: No Status: Acute Code(s): R07.9 - CHEST PAIN, UNSPECIFIED SNOMED Code(s): 22788701 Plan: His chest pains are atypical. Patient had atrial flutter, atrial tachycardia with one-on-one conduction. Patient is being scheduled for cardioversion. Patient will also have a ALEKSEY prior to cardioversion. To be done by Dr. Coburn
[2019-11-27] MEDS: SODIUM CHLORIDE 0.65% NASAL SPRAY 44 ML BTL NASAL SCH ×3 (12:40→17:50)
--- NOTE | 2019-11-27 15:39 | P.PN ---
Progress Note - Text Progress Note Date: 11/27/19 Chief Complaint: Palpitation History of presenting complaint: This is a pleasant 48-year-old patient who follows with Dr. Rosa Wang. Patient was here in end of September with not feeling well. Cardiac catheterization showed normal coronaries. Patient found to be in atrial flutter uncontrolled. Symptoms are much better controlled when discharged. Patient did not have a follow-up since being discharged. Patient now presents last evening which became dizzy palpitations. Took his pulse visual 90s. Has a [place] police launch commander from the shelter and the bedside. Denies any fever or chills. No perspiration. Admitted with symptomatic atrial flutter-rate controlled. Patient also had been taking Alex-Synephrine nasal drops. Today-patient is being scheduled for cardioversion and ALEKSEY tomorrow. Otherwise no new issues. No chest pain no palpitation.. Review of systems: Was done for constitutional, cardiovascular, GI, pulmonary. relevant finding as above Active Medications Acetaminophen (Tylenol Tab) 650 mg PO Q6HR PRN PRN Reason: Fever and/ or Pain Last Admin: 11/25/19 17:15 Dose: 650 mg Documented by: Amiodarone HCl (Cordarone) 200 mg PO DAILY [facility] Last Admin: 11/27/19 07:58 Dose: 200 mg Documented by: Apixaban (Eliquis) 5 mg PO BID [facility] Last Admin: 11/27/19 07:58 Dose: 5 mg Documented by: Aspirin (Aspirin) 325 mg PO DAILY [facility] Last Admin: 11/27/19 07:58 Dose: 325 mg Documented by: Lisinopril (Zestril) 10 mg PO DAILY [facility] Last Admin: 11/27/19 07:59 Dose: 10 mg Documented by: Metoprolol Tartrate (Lopressor) 25 mg PO BID [facility] Last Admin: 11/27/19 07:58 Dose: 25 mg Documented by: Nitroglycerin (Nitrostat) 0.4 mg SUBLINGUAL Q5M PRN PRN Reason: Chest Pain Sodium Chloride ([place]) 2 spray NASAL QID [facility] Last Admin: 11/27/19 12:48 Dose: 2 spray Documented by: Physical examination: VITAL SIGNS: 98.1, 84, 16, 134/83, 99% room air GENERAL: Sitting up in the bed, comfortable EYES: Pupils equal. Conjunctiva normal. HEENT: External appearance of nose and ears normal, oral cavity grossly normal. NECK: JVD not raised; masses not palpable. HEART: Heart sounds irregular; no edema. LUNGS: Respiratory rate normal; clear to auscultation. ABDOMEN: Soft, nontender, liver spleen not palpable, no masses palpable. PSYCH: Alert and oriented x3; mood and affect normal. INVESTIGATIONS, reviewed in the clinical context: Potassium 4.5 creatinine 0.98 Previous testing White count 6.5 hemoglobin 17 potassium 3.8 creatinine 0.9. LDL 135 EKG tracing personally reviewed by me-atrial flutter with a rate of 90s 2-D echocardiogram-severe concentric LVH, EF of 50-55% Troponin I 3 negative Assessment: -Persistent atrial flutter with 2:1 block, symptomatic, POA -Recent Cardiac catheterization revealing normal coronaries -Obesity BMI 30.1 -Essential hypertension -Hypertensive heart disease -Patient is taking oxymetazoline nasal spray-most likely cause of this precipitation of his symptoms. That'll be discontinued Plan: -Continue current medications. Cardioversion and ALEKSEY rescheduled for tomorrow with Dr. Irwin. Discussed with the patient.
[2019-11-28] MEDS: SODIUM CHLORIDE 0.65% NASAL SPRAY 44 ML BTL NASAL SCH (01:13)
[2019-11-28 05:20] VITALS: RESP 18
[2019-11-28 12:07] VITALS: BP 155/98; PULSE 92; TEMP 97.3
[2019-11-28] MEDS: AMIODARONE 200 MG TAB PO SCH (12:07)
[2019-11-28] MEDS: LISINOPRIL 10 MG TAB PO SCH (12:07)
[2019-11-28] MEDS: ASPIRIN 325 MG TAB PO SCH (12:07)
[2019-11-28] MEDS: METOPROLOL TARTRATE 25 MG TAB PO SCH (12:08)
[2019-11-28] MEDS: APIXABAN 5 MG TAB PO SCH (12:08)
--- NOTE | 2019-11-29 23:16 | P.DS ---
Providers Date of admission: 11/25/19 11:19 Expected date of discharge: 11/28/19 Attending physician: Jorge Diaz Consults: 11/25/19 11:19 Consult Physician Urgent Consulting Provider: [facility] Consult Reason/Comments: Unstable angina Do you want consulting provider notified?: Yes Primary care physician: Irena Wang [place] [facility] Course: Chief Complaint: Palpitation History of presenting complaint: This is a pleasant 48-year-old patient who follows with Dr. Rosa Wang. Patient was here in end of September with not feeling well. Cardiac catheterization showed normal coronaries. Patient found to be in atrial flutter uncontrolled. Symptoms are much better controlled when discharged. Patient did not have a follow-up since being discharged. Patient now presents last evening which became dizzy palpitations. Took his pulse visual 90s. Has a security police from the [facility] and the bedside. Denies any fever or chills. No perspiration. Admitted with symptomatic atrial flutter-rate controlled. Patient also had been taking Alex-Synephrine nasal drops. This could be contributing to symptoms. Discontinued. Put on sitting to stroke. Patient was due for an scheduled for cardioversion and ALEKSEY this morning. Patient experienced a cardiac arrest in the next room.. Became apprehensive decided to cancel his testing. To follow Dr. Irwin in his outpatient. Beta giselle added. Consultation: Dr. Kendrick from cardiology Physical examination: VITAL SIGNS: 97.3, 92, 18, 155/98, 92% room air GENERAL: Sitting up in the bed, comfortable EYES: Pupils equal. Conjunctiva normal. HEENT: External appearance of nose and ears normal, oral cavity grossly normal. NECK: JVD not raised; masses not palpable. HEART: Heart sounds irregular; no edema. LUNGS: Respiratory rate normal; clear to auscultation. ABDOMEN: Soft, nontender, liver spleen not palpable, no masses palpable. PSYCH: Alert and oriented x3; mood and affect normal. INVESTIGATIONS, reviewed in the clinical context: Potassium 4.5 creatinine 0.98 Previous testing White count 6.5 hemoglobin 17 potassium 3.8 creatinine 0.9. LDL 135 EKG tracing personally reviewed by me-atrial flutter with a rate of 90s 2-D echocardiogram-severe concentric LVH, EF of 50-55% Troponin I 3 negative Assessment: -Persistent atrial flutter with 2:1 block, symptomatic, POA -Recent Cardiac catheterization revealing normal coronaries -Obesity BMI 30.1 -Essential hypertension -Hypertensive heart disease -Patient is taking oxymetazoline nasal spray-most likely cause of this precipitation of his symptoms. discontinued Disposition: Home Patient Condition at Discharge: Stable Plan - Discharge Summary Discharge Rx Participant: Yes New Discharge Prescriptions: New Sodium Chloride 0.65% Nasal [[place] ([place])] 2 spray NASAL QID spray Metoprolol Tartrate [Lopressor] 25 mg PO BID #60 tab Continue Apixaban [Eliquis] 5 mg PO BID #60 tab Lisinopril [Zestril] 10 mg PO DAILY Amiodarone [Cordarone] 200 mg PO DAILY Discontinued Oxymetazoline 0.05% Nasl [place] [Afrin 0.05% Nasal [place]] 2 spray NASAL BID bottle Discharge Medication List Apixaban [Eliquis] 5 mg PO BID #60 tab 10/24/19 [Rx] Amiodarone [Cordarone] 200 mg PO DAILY 11/25/19 [History] Lisinopril [Zestril] 10 mg PO DAILY 11/25/19 [History] Metoprolol Tartrate [Lopressor] 25 mg PO BID #60 tab 11/28/19 [Rx] Sodium Chloride 0.65% Nasal [[place] (Saline)] 2 spray NASAL QID spray 11/28/19 [Rx] Follow up Appointment(s)/Referral(s): Sunita Kendrick MD [STAFF PHYSICIAN] - 1 Week Irena Wang MD [Primary Care Provider] - 1-2 days Patient Instructions/Handouts: Atrial Flutter (DC) Discharge Disposition: DC/TRANSFER COURT/LAW
== END 2019-11-28 12:55 ==
LOC: EC 09:46 → 3SCARD 11:19
PROVIDERS: ADMIT Hospitalist; ATTEND Hospitalist
DX: I48.92 Unspecified atrial flutter (principal); E66.9 Obesity, unspecified; Z68.30 Body mass index [BMI] 30.0-30.9, adult; I11.9 Hypertensive heart disease without heart failure; R00.0 Tachycardia, unspecified; I45.10 Unspecified right bundle-branch block; I48.91 Unspecified atrial fibrillation; I25.2 Old myocardial infarction; I20.0 Unstable angina; Z79.01 Long term (current) use of anticoagulants; Z79.899 Other long term (current) drug therapy; Z80.1 Family history of malignant neoplasm of trachea, bronchus and lung; Z20.828 Contact with and (suspected) exposure to other viral communicable diseases; Z53.29 Procedure and treatment not carried out because of patient's decision for other reasons
CPT/HCPCS: 99285; 36415; 93005; 93306; 80061; 80053; 80048; 83735 ×2; 84484; 85025; 85610; 85730; 71046; G0378 ×4; U0003